=== PATIENT | male | born 1935 | race Caucasian/White ===

== ENCOUNTER 2019-01-31 14:00 | Outpatient (RCR) | payer MEDICARE, OTHER ==
[2016-02-07 14:35] VITALS: BP 151/87
[~2019-01-31 14:00] MED LIST: ASPIR LOW81 MG PO; BETIMOL 0.5% OPH5 ML OP; CIPRO500 M1 PO; FLOMAX 0.40.4 MG/CAP PO; GOOD NEIGHBOR100 M2 PO; MULTIVITAMIN1 SGL PO; OMEGA 3 1,0001 EACH PO; XALATAN 2.5 ML2.5 ML OP
== END 2019-01-31 14:30 | disposition still patient (30) ==
LOC: PT 14:00
DX: M25.511 Pain in right shoulder (principal)

== ENCOUNTER → 2020-06-21 | Outpatient (CLI) | payer MEDICARE, OTHER ==
[2016-02-07 14:35] VITALS: BP 151/87
== END ==
LOC: RAD 10:50
DX: N13.2 Hydronephrosis with renal and ureteral calculous obstruction (principal)

== ENCOUNTER → 2020-08-08 | Outpatient (CLI) | payer MEDICARE, OTHER ==
[2016-02-07 14:35] VITALS: BP 151/87
== END ==
LOC: LAB 13:38
PROVIDERS: Urology
DX: N20.1 Calculus of ureter (principal); N13.30 Unspecified hydronephrosis
CPT/HCPCS: Q9967